=== PATIENT | male | born 1985 | race Caucasian/White ===

== ENCOUNTER 2016-12-07 15:00 | Emergency (ER) | payer MEDICAID ==
[2016-12-07] MEDS ORDERED: LORazepam 2 MG/ML INJ IVP ONE (15:31)
[2016-12-07] MEDS ORDERED: NS 1,000 ML IV ONE (15:31)
--- NOTE | 2016-12-07 15:35 | EDPHY ---
H & P Stated Complaint: Syncope vs sz Time Seen by Provider: 12/07/16 15:21 HPI/ROS: CHIEF COMPLAINT: Seizure HISTORY OF PRESENT ILLNESS: The patient is a 31-year-old man with a history of schizophrenia and alcohol abuse. He was being driven home from the [facility] outpatient appointment today by his dad when he had a seizure in the passenger seat. Dad states the seizure lasted for about 90 seconds and he wsa postictal for about 10 or 15 minutes. The patient is now back to normal. The patient is on multiple antipsychotic medications but they do not remember the names. They are not sure if he is on any benzodiazepines. They states that he has not had any recent changes in his medications. He does take Antabuse. Parents are very confident that he has not had any alcohol in the last 8 months. They state that they have been with him for the last 3 days. Patient denies any recent fevers or illness. He denies headache. He was incontinent today. No oral trauma. REVIEW OF SYSTEMS: Constitutional: denies: chills, fever, recent illness, recent injury EENTM: denies: blurred vision, double vision, nose congestion Respiratory: denies: cough, shortness of breath Cardiac: denies: chest pain, irregular heart rate, lightheadedness, palpitations Gastrointestinal/Abdominal: denies: abdominal pain, diarrhea, nausea, vomiting, blood streaked stools Genitourinary: See HPI Musculoskeletal: denies: joint pain, muscle pain Skin: denies: lesions, rash, jaundice, bruising Neurological: See HPI, denies: headache, numbness, paresthesia, tingling, dizziness, weakness Hematologic/Lymphatic: denies: blood clots, easy bleeding, easy bruising Immunologic/allergic: denies: HIV/AIDS, transplant EXAM: GENERAL: slightly confused, disheveled HEAD: Atraumatic, normocephalic. EYES: Pupils equal round and reactive to light, extraocular movements intact, sclera anicteric, conjunctiva are normal. ENT: TMs normal, nares patent, oropharynx clear without exudates. Moist mucous membranes. NECK: Normal range of motion, supple without lymphadenopathy or JVD. LUNGS: Breath sounds clear to auscultation bilaterally and equal. No wheezes rales or rhonchi. HEART: Regular rate and rhythm without murmurs, rubs or gallops. ABDOMEN: Soft, nontender, normoactive bowel sounds. No guarding, no rebound. No masses appreciated. BACK: No CVA tenderness, no spinal tenderness, step-offs or deformities EXTREMITIES: Normal range of motion, no pitting or edema. No clubbing or cyanosis. NEUROLOGICAL: Cranial nerves II through XII grossly intact. Normal speech, normal gait. 5/5 strength, normal movement in all extremities, normal sensation PSYCH: Normal mood, normal affect. SKIN: Warm, dry, normal turgor, no visible rashes or lesions. Source: Patient, Family Exam Limitations: Clinical condition - Personal History Current Tetanus Diphtheria and Acellular Pertussis (TDAP): Unsure - Medical/Surgical History Hx Asthma: No Hx Chronic Respiratory Disease: No Hx Diabetes: No Hx Cardiac Disease: No Hx Renal Disease: No Hx Cirrhosis: No Hx Alcoholism: No Hx HIV/AIDS: No Hx Splenectomy or Spleen Trauma: No Other PMH: PS. past hx substance abuse - Family History Significant Family History: No pertinent family hx - Social History Smoking Status: Current every day smoker Alcohol Use: Sober Drug Use: None Constitutional: Initial Vital Signs Temperature (C) 37.4 C 12/07/16 15:05 Heart Rate 115 H 12/07/16 15:05 Respiratory Rate 18 12/07/16 15:05 Blood Pressure 137/84 H 12/07/16 15:05 O2 Sat (%) 93 12/07/16 15:05 O2 Delivery Mode Room Air Allergies/Adverse Reactions: haloperidol [From Haldol] Allergy (Verified 12/07/16 15:08) haloperidol lactate [From Haldol] Allergy (Verified 12/07/16 15:08) Home Medications: Medication Instructions Recorded OLANZapine [Zyprexa] 20 mg PO HS #0 tablet 03/30/16 Medical Decision Making - Diagnostics EKG Interpretation: An EKG obtained and was read and documented in trace view. Please see trace view for full reading and report. Sinus rhythm, no acute ischemic changes Imaging: Discussed imaging studies w/ scallop binder Radiologist ED Course/Re-evaluation: I reviewed the patient's medication list which she took today. He does take close rules well as lithium. Both can cause seizures with high doses. He appears to be on fairly normal doses. 5:00 p.m. the patient's lab work and imaging are reassuring. The patient feels reassured. I will have him follow up with Neurology. He declines further workup or testing. His family is agreeing with this. Differential Diagnosis: Partial list of the Differential diagnosis considered include but were not limited to; seizure, syncope abnormality and although unlikely based on the history and physical exam, I also considered head injury, infection. I discussed these differential diagnoses and the plan with the patient as well as the usual and expected course. The patient understands that the diagnosis is provisional and that in medicine we are not always correct and that further workup is often warranted. Usual and customary warnings were given. All of the patient's questions were answered. The patient was instructed to return to the emergency department should the symptoms at all worsen or return, otherwise to followup with the physician as we discussed. - Data Points Laboratory Results: Laboratory Results 12/07/16 15:20 12/07/16 15:20 Medications Given: Discontinued Medications Sodium Chloride (Ns) 1,000 mls @ 0 mls/hr IV ONCE ONE; Wide Open PRN Reason: Protocol Stop: 12/07/16 15:32 Last Admin: 12/07/16 15:43 Dose: 1,000 mls Lorazepam (Ativan Injection) 1 mg IVP EDNOW ONE Stop: 12/07/16 15:32 Last Admin: 12/07/16 15:44 Dose: 1 mg Departure - Departure Disposition: Home, Routine, Self-Care Clinical Impression: Seizure Condition: Fair Instructions: New-Onset Seizure in Adults (ED) Referrals: NONE *PRIMARY CARE P,. [Primary Care Provider] - As per Instructions Hill Menchaca DO [Medical Doctor] - As per Instructions
[2016-12-07 15:41] LABS: % IMMATURE GRANULYOCYTES 0.4 % (0.0-1.1); ABSOLUTE IMMATURE GRANULOCYTES 0.05 10^3/uL (0.00-0.10); ADD DIFF? NO; ADD MORPH? NO; ADD SCAN? NO; ATYPICAL LYMPHOCYTE FLAG 10 (0-99); FRAGMENT RBC FLAG 0 (0-99); HEMATOCRIT 44.8 % (40.0-51.0); HEMOGLOBIN 14.8 g/dL (13.7-17.5); LEFT SHIFT FLG 0 (0-99); LIPEMIA HEMOLYSIS FLAG 80 (0-99); MEAN CELL HEMOGLOBIN 31.5 pg (27.9-34.1); MEAN CELL VOLUME 95.3 fL (81.5-99.8); MEAN PLATELET VOLUME 9.9 fL (8.7-11.7); PLATELET CLUMPS FLAG 0 (0-99); PLATELET COUNT 272 10^3/uL (150-400); RED CELL DISTRIBUTION WIDTH 13.9 % (11.5-15.2)
[2016-12-07 15:50] LABS: ANION GAP 13 mEq/L (8-16); CALCIUM 10.3 mg/dL (8.5-10.4); CARBON DIOXIDE 21 mEq/l (22-31); CHLORIDE 104 mEq/L (97-110); CREATININE 0.8 mg/dL (0.7-1.3); ETHANOL SERUM < 10 mg/dL (0-10); GLOMERULAR FILTRATION RATE > 60; GLUCOSE 126 mg/dL (70-100); LITHIUM 1.7 mEq/L (0.6-1.2); POTASSIUM 4.1 mEq/L (3.5-5.2); SODIUM 138 mEq/L (134-144)
--- NOTE | 2016-12-07 16:05 | CPEKG ---
Heart Rate: 89 RR Interval: 674 P-R Interval: 152 QRSD Interval: 98 QT Interval: 380 QTC Interval: 463 P [place]: 67 QRS [place]: 53 T Wave [place]: 60 EKG Severity - NORMAL ECG - EKG Impression: SINUS RHYTHM Electronically Signed By: Jose Geller 07-Dec-2016 16:24:38
[2016-12-07 17:12] VITALS: BP 109/87; PULSE 88; RESP 16; TEMP 98.1; O2SAT 96
== END 2016-12-07 17:12 | disposition home or self-care (01) ==
DX: R56.9 Unspecified convulsions (principal); E86.9 Volume depletion, unspecified; F17.200 Nicotine dependence, unspecified, uncomplicated
CPT/HCPCS: 96374; G0480; J2060

== ENCOUNTER 2017-04-05 22:45 | Emergency (ER) | payer MEDICAID ==
[2017-04-05] MEDS ORDERED: NS 1,000 ML IV ONE (22:50)
--- NOTE | 2017-04-05 22:51 | EDPHY ---
H & P HPI/ROS: HPI CHIEF COMPLAINT: Seizure at home HISTORY OF PRESENT ILLNESS: This patient very pleasant 31-year-old male, significant past medical history for schizophrenia, on court-ordered medications , takes lithium, additionally history of alcohol abuse, and remote history of a seizure. Presents emergency room after having a witnessed seizure by his mom at home. According to EMS last very short. He was postictal after the seizure. Patient did have bowel bladder incontinence. Did not bite his tongue. Does not remember what happened. Past Medical History: Schizophrenia, history of alcohol abuse, history remote seizure Past Surgical History: Denies recent surgery Social History: Denies daily use of drugs alcohol tobacco products. Family History: Noncontributory. ROS REVIEW OF SYSTEMS: A comprehensive 10 point review of systems is otherwise negative aside from elements mentioned in the history of present illness. Exam Constitutional appears well nontoxic, triage nursing summary reviewed, vital signs reviewed, awake/alert. Eyes normal conjunctivae and sclera, EOMI, PERRLA. HENT normal inspection, atraumatic, moist mucus membranes, no epistaxis, neck supple/ no meningismus, no raccoon eyes. Respiratory clear to auscultation bilaterally, normal breath sounds, no respiratory distress, no wheezing. Cardiovascular rate normal, regular rhythm, no murmur, no edema, distal pulses normal. Gastrointestinal soft, non-tender, no rebound, no guarding, normal bowel sounds, no distension, no pulsatile mass. Genitourinary no CVA tenderness. Musculoskeletal no midline vertebral tenderness, full range of motion, no calf swelling, no tenderness of extremities, no meningismus, good pulses, neurovascularly intact. Back exam I do not appreciate any significant signs of trauma. Skin pink, warm, & dry, no rash, skin atraumatic. Neurologic awake, alert and oriented x 3, AAOx3, moves all 4 extremities equally, motor intact, sensory intact, CN II-XII intact, normal cerebellar, normal vision, normal speech. Psychiatric normal mood/affect. Heme/Lymph/Immune no lymphadenopathy. Differential Diagnosis: Includes but is not limited to in a particular order, seizure, epilepsy, breakthrough seizure, electrolyte disturbance, alcohol abuse , alcohol withdrawal, infection, look lithium toxicity, drug screen Medical Decision Making: IV establishment, check basic blood work, CT head without contrast for seizure, check alcohol level drug screen, check lithium level. Re-evaluation: CT scan of the head without IV contrast. The results of the study are negative for acute abnormality The study was read by Dr. Iglesias I viewed the images myself on the PACS system. EKG interpretation by me on record in [employer] system. Impression time of EKG 0015 sinus rhythm rate of 72. There is no acute ischemic change. 1235: Patient's blood work CT and x-ray been reviewed. No acute traumatic injury of the back. CT head without contrast does not show a bleed. Blood work is reassuring. He has had no seizure activity here in emergency room. Recommend he follows up with his primary care doctor and Neurology if he continues to have any further seizure return emergency room. Source: Patient, EMS - Medical/Surgical History Hx Asthma: No Hx Chronic Respiratory Disease: No Hx Diabetes: No Hx Cardiac Disease: No Hx Renal Disease: No Hx Cirrhosis: No Hx Alcoholism: No Hx HIV/AIDS: No Hx Splenectomy or Spleen Trauma: No Other PMH: PS. past hx substance abuse - Social History Smoking Status: Current every day smoker Constitutional: Initial Vital Signs Temperature (C) 36.9 C 04/05/17 22:45 Heart Rate 103 H 04/05/17 22:45 Respiratory Rate 16 04/05/17 22:45 Blood Pressure 133/78 H 04/05/17 22:45 O2 Sat (%) 93 04/05/17 22:45 O2 Delivery Mode Room Air Allergies/Adverse Reactions: haloperidol [From Haldol] Allergy (Verified 12/07/16 15:08) haloperidol lactate [From Haldol] Allergy (Verified 12/07/16 15:08) Home Medications: Medication Instructions Recorded ANTABUSE 04/05/17 Abilify 04/05/17 Clozaril 04/05/17 Desmopressin 04/05/17 Fish Oil 1,000 mg Capsule 04/05/17 Gabapentin 04/05/17 [place] Carbonate ER 04/05/17 Omeprazole 04/05/17 Prozac 10 MG (*) 04/05/17 Vitamin D3 04/05/17 Medical Decision Making - Diagnostics Imaging Results: Imaging Impressions Head CT 04/05/17 22:50 Impression: Technically limited, negative exam. I telephoned results to Armand Nguyen, answering the phone for David Gongora, at 2345 hours. Lumbar Spine X-Ray 04/05/17 22:56 Impression: Possible early disk degeneration at L4-L5. No fracture. - Data Points Laboratory Results: Laboratory Results 04/05/17 22:50 04/05/17 22:50 04/05/17 04/05/17 04/05/17 22:50 22:50 00:15 WBC 11.40 10^3/uL H 10^3/uL (3.80-9.50) RBC 4.69 10^6/uL 10^6/uL (4.40-6.38) Hgb 15.1 g/dL g/dL (13.7-17.5) Hct 45.7 % % (40.0-51.0) MCV 97.4 fL fL (81.5-99.8) MCH 32.2 pg pg (27.9-34.1) MCHC 33.0 g/dL g/dL (32.4-36.7) RDW 14.6 % % (11.5-15.2) Plt Count 252 10^3/uL 10^3/uL (150-400) MPV 9.8 fL fL (8.7-11.7) Neut % (Auto) 56.4 % % (39.3-74.2) Lymph % (Auto) 28.1 % % (15.0-45.0) [place] % (Auto) 4.1 % L % (4.5-13.0) Eos % (Auto) 10.5 % H % (0.6-7.6) Baso % (Auto) 0.5 % % (0.3-1.7) Nucleat RBC Rel Count 0.0 % % (0.0-0.2) Absolute Neuts (auto) 6.42 10^3/uL 10^3/uL (1.70-6.50) Absolute Lymphs (auto) 3.20 10^3/uL H 10^3/uL (1.00-3.00) Absolute Monos (auto) 0.47 10^3/uL 10^3/uL (0.30-0.80) Absolute Eos (auto) 1.20 10^3/uL H 10^3/uL (0.03-0.40) Absolute Basos (auto) 0.06 10^3/uL 10^3/uL (0.02-0.10) Absolute Nucleated RBC 0.00 10^3/uL 10^3/uL (0-0.01) Immature Gran % 0.4 % % (0.0-1.1) Immature Gran # 0.05 10^3/uL 10^3/uL (0.00-0.10) Sodium 138 mEq/L mEq/L (134-144) Potassium 4.2 mEq/L mEq/L (3.5-5.2) Chloride 101 mEq/L mEq/L (97-110) Carbon Dioxide 25 mEq/l mEq/l (22-31) Anion Gap 12 mEq/L mEq/L (8-16) BUN 6 mg/dL L mg/dL (7-23) Creatinine 0.7 mg/dL mg/dL (0.7-1.3) Estimated GFR > 60 Glucose 126 mg/dL H mg/dL (70-100) Calcium 9.7 mg/dL mg/dL (8.5-10.4) Urine Color YELLOW Urine Appearance CLEAR Urine pH 7.0 (5.0-7.5) Ur Specific [place] 1.017 (1.002-1.030) Urine Protein NEGATIVE (NEGATIVE) Urine Ketones NEGATIVE (NEGATIVE) Urine Blood NEGATIVE (NEGATIVE) Urine Nitrate NEGATIVE (NEGATIVE) Urine Bilirubin NEGATIVE (NEGATIVE) Urine Urobilinogen NEGATIVE EU EU (0.2-1.0) Ur Leukocyte Esterase NEGATIVE (NEGATIVE) Urine Glucose NEGATIVE (NEGATIVE) Urine Opiates Screen NEGATIVE (NEGATIVE) Urine Barbiturates NEGATIVE (NEGATIVE) Ur Phencyclidine Scrn NEGATIVE (NEGATIVE) Ur Amphetamine Screen NEGATIVE (NEGATIVE) U Benzodiazepines Scrn NEGATIVE (NEGATIVE) [place] 1.4 mEq/L H mEq/L (0.6-1.2) Urine Cocaine Screen NEGATIVE (NEGATIVE) U Marijuana (THC) Screen NEGATIVE (NEGATIVE) Ethyl Alcohol < 10 mg/dL mg/dL (0-10) Medications Given: Discontinued Medications Sodium Chloride (Ns) 1,000 mls @ 0 mls/hr IV EDNOW ONE; Wide Open PRN Reason: Protocol Stop: 04/05/17 22:51 Last Admin: 04/05/17 23:00 Dose: 1,000 mls Departure - Departure Disposition: Home, Routine, Self-Care Clinical Impression: Seizure Condition: Good Instructions: Epilepsy (ED) Additional Instructions: 1. Return emergency room if he develops any worsening symptoms questions or concerns. 2. If you have another seizure return emergency room. Referrals: Patient,NotPresent [Unknown] - As per Instructions Hill Menchaca DO [Medical Doctor] - As per Instructions
[2017-04-05 23:00] LABS: % IMMATURE GRANULYOCYTES 0.4 % (0.0-1.1); ABSOLUTE IMMATURE GRANULOCYTES 0.05 10^3/uL (0.00-0.10); ADD DIFF? NO; ADD MORPH? NO; ADD SCAN? NO; ATYPICAL LYMPHOCYTE FLAG 0 (0-99); FRAGMENT RBC FLAG 0 (0-99); HEMATOCRIT 45.7 % (40.0-51.0); HEMOGLOBIN 15.1 g/dL (13.7-17.5); LEFT SHIFT FLG 0 (0-99); LIPEMIA HEMOLYSIS FLAG 80 (0-99); MEAN CELL HEMOGLOBIN 32.2 pg (27.9-34.1); MEAN CELL VOLUME 97.4 fL (81.5-99.8); MEAN PLATELET VOLUME 9.8 fL (8.7-11.7); PLATELET CLUMPS FLAG 0 (0-99); PLATELET COUNT 252 10^3/uL (150-400); RED BLOOD CELL COUNT 4.69 10^6/uL (4.40-6.38); RED CELL DISTRIBUTION WIDTH 14.6 % (11.5-15.2)
[2017-04-05 23:12] LABS: ANION GAP 12 mEq/L (8-16); CALCIUM 9.7 mg/dL (8.5-10.4); CARBON DIOXIDE 25 mEq/l (22-31); CHLORIDE 101 mEq/L (97-110); CREATININE 0.7 mg/dL (0.7-1.3); ETHANOL SERUM < 10 mg/dL (0-10); GLOMERULAR FILTRATION RATE > 60; GLUCOSE 126 mg/dL (70-100); LITHIUM 1.4 mEq/L (0.6-1.2); POTASSIUM 4.2 mEq/L (3.5-5.2); SODIUM 138 mEq/L (134-144)
--- NOTE | 2017-04-06 00:17 | CPEKG ---
Heart Rate: 72 RR Interval: 833 P-R Interval: 152 QRSD Interval: 96 QT Interval: 404 QTC Interval: 443 P [place]: 52 QRS [place]: 46 T Wave [place]: 53 EKG Severity - NORMAL ECG - EKG Impression: SINUS RHYTHM Electronically Signed By: David Lepe 06-Apr-2017 06:58:08
[2017-04-06 00:26] LABS: COLOR YELLOW; LEUKOCYTE ESTERASE,URINE NEGATIVE (NEGATIVE); NITRITE,URINE NEGATIVE (NEGATIVE)
[2017-04-06 00:51] VITALS: BP 137/87; PULSE 87; RESP 18; TEMP 97.2; O2SAT 100
== END 2017-04-06 00:54 | disposition home or self-care (01) ==
LOC: EDUNIT#
DX: G40.909 Epilepsy, unspecified, not intractable, without status epilepticus (principal); F17.200 Nicotine dependence, unspecified, uncomplicated; E86.9 Volume depletion, unspecified
CPT/HCPCS: 80305; G0480

== ENCOUNTER 2017-05-22 21:27 | Emergency (ER) | payer MEDICAID ==
--- NOTE | 2017-05-22 21:32 | EDPHY ---
H & P Time Seen by Provider: 05/22/17 21:30 HPI/ROS: HPI: This is a 31-year-old male presents with Chief Complaint: Seizure Location: body Quality:seizure Duration: 15 sec Signs and Symptoms: No fever, no chills, no nausea, no vomiting, no chest pain , no shortness of breath, no incontinence, + biting tongue Timing: Sudden Severity: Moderate Context: Patient has a history of paranoid schizophrenia, epilepsy, lives with his mother and receives court order medications including Clozaril, [place], Antabuse, Abilify and Gabapentin presents via EMS as mother witnessed him having a grand mal tonic-clonic seizure in the kitchen. Patient does not remember the events is postictal upon arrival. EMS noted fingerstick in the 140 and telemetry showing sinus tachycardia at a heart rate of 110. Patient complains of right lateral neck pain; nonradiating in nature. Patient has had 2 other seizures last year with negative head CT scan, EKG. Reports compliance on medications. EMS noted a mild tongue laceration on the left lateral side as well as a contusion or laceration on the occipital scalp area. + incontinence Denies any with fever/chills/chest pain/SOB/cough. Approximately 45 min later mother at bedside and relates that patient had a witnessed seizure and hit his head on the tile floor. She confirms that this is his 3rd seizure. They never followed with Neurology as recommended in the past. Only follows with psychiatry. Reports that patient seemed at his baseline today and is slowly returning to his baseline while waiting in the emergency room. Modifying Factors: Comment: ROS: see HPI Constitutional: No fever, no chills, no weight loss Eyes: No blurred vision Respiratory: No shortness of breath, no cough Cardiovascular: No chest pain Gastrointestinal: No nausea, no vomiting, no diarrhea Genitourinary: No dysuria Extremities: No myalgias Neurologic: No weakness, no numbness Skin: No rashes Hematologic: No bruising, no bleeding MEDICAL/SURGICAL/SOCIAL HISTORY: Medical history: Paranoid schizophrenic, epilepsy Surgical history: Denies Social history: Lives with his mother. Unemployed. CONSTITUTIONAL: Post ictal, mildly confused adult white male, untidy appearance , awake and alert, no obvious distress HEENT: 2 cm contusion occipital scalp; no fracture; normocephalic, PERRL, EOMI. Tympanic membranes clear. Oropharynx clear, tongue shows superficial laceration and no active bleeding on left lateral aspect. no exudate and moist pink mucosa. Airway patent. No lymphadenopathy. NECK: supple, no midline tenderness, flexion 45 degrees, extension 45 degrees, right and left lateral flexion 45 degrees. No meningismus. Cardiovascular: Normal S1/S2, regular rate, regular rhythm, without murmur rub or gallop. PULMONARY/CHEST: Symmetrical and nontender. Clear to auscultation bilaterally. Good air movement. No accessory muscle usage. ABDOMEN: Soft, nondistended, nontender, no rebound, no guarding, no peritoneal signs, no masses or organomegaly. No CVAT. EXTREMITIES: 2/2 pulses, strength 5/5, no deformities, no clubbing, no cyanosis or edema. NEUROLOGICAL: no focal neuro deficits. GCS 15. Cranial nerves 2-12 grossly intact. SKIN: Warm and dry, no erythema. no rash. Good capillary refill. Source: Patient, Family (Mother), RN/MD, EMS, Old records Exam Limitations: Clinical condition - Medical/Surgical History Hx Asthma: No Hx Chronic Respiratory Disease: No Hx Diabetes: No Hx Cardiac Disease: No Hx Renal Disease: No Hx Cirrhosis: No Hx Alcoholism: No Hx HIV/AIDS: No Hx Splenectomy or Spleen Trauma: No Other PMH: PS. past hx substance abuse - Social History Smoking Status: Current every day smoker Constitutional: Initial Vital Signs Temperature (C) 37.0 C 05/22/17 21:30 Heart Rate 103 H 05/22/17 21:30 Respiratory Rate 16 05/22/17 21:30 Blood Pressure 141/98 H 05/22/17 21:30 O2 Sat (%) 95 05/22/17 21:30 O2 Delivery Mode Room Air Allergies/Adverse Reactions: haloperidol [From Haldol] Allergy (Verified 05/22/17 21:40) haloperidol lactate [From Haldol] Allergy (Verified 05/22/17 21:40) Home Medications: Medication Instructions Recorded ANTABUSE 04/05/17 Abilify 04/05/17 Desmopressin 04/05/17 Fish Oil 1,000 mg Capsule 04/05/17 Gabapentin 04/05/17 [place] Carbonate ER 04/05/17 Omeprazole 04/05/17 Prozac 10 MG (*) 11/20/17 Vitamin D3 04/05/17 Clozapine 05/22/17 Disulfiram [ANTABUSE] 05/22/17 Wellbutrin Xl 05/22/17 Medical Decision Making - Diagnostics EKG Interpretation: 12 lead EKG: Indication: Seizure Rhythm: Sinus tachycardia, rate 100 beats per minute Drift: Normal Intervals: Normal QRS: Normal ST segments: Normal INTERPRETATION: No acute ischemic changes The 12 lead EKG was interpreted by myself and with attending. Imaging Results: Imaging Impressions Head CT 05/22/17 21:33 Impression: Normal. Results called and discussed with Michelle Conde PA-C, at 05/22/2017 22:18. Cervical Spine X-Ray 05/22/17 21:35 Impression: Unremarkable cervical spine x-ray. No evidence for fracture. Procedures: Procedure: Laceration repair. Verbal consent was obtained from the patient. The 2 cm, linear, superficial, simple laceration occipital scalp was NOT anesthetized. The wound was irrigated , draped and explored to its base with a gloved finger. There were no deep structures involved. No tendon injury was identified. The wound was repaired with #2 napoleon. Good hemostasis was achieved and patient tolerated procedure well. Bacitracin applied. No complications were noted. ED Course/Re-evaluation: EKG, head CT scan, labs, UDS, IV, IV fluids medications ordered Head CT imaging done due to LOC/postictal 1 L normal saline and IV Ativan 1 mg despite interaction with Clozaril as benefit outweighs risk. Recurrence of known epileptic seizure 2220: Called by radiologist and head CT scan shows no acute intracranial process. Contusion was cleaned and copiously irrigated. Labs reviewed and grossly unremarkable; lithium within normal limits; urine drug screen negative. Mother and patient have never followed up with Neurology; they are to follow up with Dr. Menchaca EKG shows no arrhythmias/acute ischemia Tongue laceration does not require repair with sutures. Patient monitored for over 2 hr in the emergency room room without any seizure activity. Seizure activity not intractable; no status epilepticus. Will defer to Neurology for any additional anti seizure medications due to polypharmacy psychiatric medications. Mother feels comfortable taking patient home at this time. Patient seems to be stable as far as his schizophrenia. No signs of delirium/ psychosis/suicidal ideation/homicidal ideation This patient was seen under the supervision of my secondary supervising physician. I evaluated care for this patient independently. Discussed this patient with Dr. Lepe who did not see the patient. Patient's presentation, labs/imaging, treatment and plan of care were discussed with secondary supervising physician. Differential Diagnosis: Seizure including but not limited to electrolyte abnormality, alcohol withdrawal , medication noncompliance, head injury, and breakthrough seizure. - Data Points Laboratory Results: Laboratory Results 05/22/17 21:30 05/22/17 21:30 05/22/17 05/22/17 05/22/17 22:50 21:30 21:30 WBC RBC Hgb Hct MCV MCH MCHC RDW Plt Count MPV Neut % (Auto) Lymph % (Auto) [place] % (Auto) Eos % (Auto) Baso % (Auto) Nucleat RBC Rel Count Absolute Neuts (auto) Absolute Lymphs (auto) Absolute Monos (auto) Absolute Eos (auto) Absolute Basos (auto) Absolute Nucleated RBC Immature Gran % Immature Gran # PT 13.7 SEC SEC (12.0-15.0) INR 1.03 (0.83-1.16) Sodium 143 mEq/L mEq/L (134-144) Potassium 4.3 mEq/L mEq/L (3.5-5.2) Chloride 104 mEq/L mEq/L (97-110) Carbon Dioxide 15 mEq/l L mEq/l (22-31) Anion Gap 24 mEq/L H mEq/L (8-16) BUN 6 mg/dL L mg/dL (7-23) Creatinine 0.8 mg/dL mg/dL (0.7-1.3) Estimated GFR > 60 Glucose 102 mg/dL H mg/dL (70-100) Calcium 10.2 mg/dL mg/dL (8.5-10.4) Troponin I < 0.012 ng/mL ng/mL (0.000-0.034) Urine Opiates Screen NEGATIVE (NEGATIVE) Urine Barbiturates NEGATIVE (NEGATIVE) Ur Phencyclidine Scrn NEGATIVE (NEGATIVE) Ur Amphetamine Screen NEGATIVE (NEGATIVE) U Benzodiazepines Scrn NEGATIVE (NEGATIVE) [place] 0.8 mEq/L mEq/L (0.6-1.2) Urine Cocaine Screen NEGATIVE (NEGATIVE) U Marijuana (THC) Screen NEGATIVE (NEGATIVE) 05/22/17 21:30 WBC 14.81 10^3/uL H 10^3/uL (3.80-9.50) RBC 4.75 10^6/uL 10^6/uL (4.40-6.38) Hgb 15.0 g/dL g/dL (13.7-17.5) Hct 47.2 % % (40.0-51.0) MCV 99.4 fL fL (81.5-99.8) MCH 31.6 pg pg (27.9-34.1) MCHC 31.8 g/dL L g/dL (32.4-36.7) RDW 13.7 % % (11.5-15.2) Plt Count 313 10^3/uL 10^3/uL (150-400) MPV 9.2 fL fL (8.7-11.7) Neut % (Auto) 58.5 % % (39.3-74.2) Lymph % (Auto) 28.1 % % (15.0-45.0) [place] % (Auto) 5.5 % % (4.5-13.0) Eos % (Auto) 6.8 % % (0.6-7.6) Baso % (Auto) 0.7 % % (0.3-1.7) Nucleat RBC Rel Count 0.0 % % (0.0-0.2) Absolute Neuts (auto) 8.67 10^3/uL H 10^3/uL (1.70-6.50) Absolute Lymphs (auto) 4.16 10^3/uL H 10^3/uL (1.00-3.00) Absolute Monos (auto) 0.82 10^3/uL H 10^3/uL (0.30-0.80) Absolute Eos (auto) 1.00 10^3/uL H 10^3/uL (0.03-0.40) Absolute Basos (auto) 0.10 10^3/uL 10^3/uL (0.02-0.10) Absolute Nucleated RBC 0.00 10^3/uL 10^3/uL (0-0.01) Immature Gran % 0.4 % % (0.0-1.1) Immature Gran # 0.06 10^3/uL 10^3/uL (0.00-0.10) PT INR Sodium Potassium Chloride Carbon Dioxide Anion Gap BUN Creatinine Estimated GFR Glucose Calcium Troponin I Urine Opiates Screen Urine Barbiturates Ur Phencyclidine Scrn Ur Amphetamine Screen U Benzodiazepines Scrn [place] Urine Cocaine Screen U Marijuana (THC) Screen Medications Given: Discontinued Medications Diphtheria/Tetanus/Acell Pertussis (Boostrix) 0.5 ml IM .ONCE ONE Stop: 05/22/17 21:40 Last Admin: 05/22/17 22:21 Dose: 0.5 ml Sodium Chloride (Ns) 1,000 mls @ 0 mls/hr IV ONCE ONE; Wide Open PRN Reason: Protocol Stop: 05/22/17 21:34 Last Admin: 05/22/17 21:51 Dose: 1,000 mls Lorazepam (Ativan Injection) 1 mg IVP EDNOW ONE Stop: 05/22/17 21:35 Last Admin: 05/22/17 21:50 Dose: 1 mg Departure - Departure Disposition: Home, Routine, Self-Care Clinical Impression: Polypharmacy, Paranoid schizophrenia Laceration of scalp without complication Qualifiers: Encounter type: initial encounter Qualified Code(s): S01.01XA - Laceration without foreign body of scalp, initial encounter Epilepsy Qualifiers: Epilepsy type: other Intractability: not intractable Status epilepticus: without status epilepticus Qualified Code(s): G40.802 - Other epilepsy, not intractable, without status epilepticus Condition: Good Instructions: Staple Care (ED), Facial Laceration (ED) Additional Instructions: Please do not wash your hair or get napoleon wet for 48 hr. After 48 hr you may get the napoleon wet; pat dry and apply topical antibiotic ointment daily. Please follow-up with Neurology to establish care for seizure activity in the next 1-2 weeks. Please return to the emergency room in 5-7 days to have your napoleon removed. Referrals: Hill Menchaca, DO [Medical Doctor] - As per Instructions
[2017-05-22] MEDS ORDERED: NS 1,000 ML IV ONE (21:33)
[2017-05-22] MEDS ORDERED: LORazepam 2 MG/ML INJ IVP ONE (21:34)
[2017-05-22] MEDS ORDERED: TDAP ADULT 0.5 ML INJ (BOOSTRIX) IM ONE (21:39)
[2017-05-22 21:40] VITALS: RESP 16; TEMP 98.6
[2017-05-22 21:41] LABS: PLATELET COUNT 313 10^3/uL (150-400)
--- NOTE | 2017-05-22 21:51 | CPEKG ---
Heart Rate: 100 RR Interval: 600 P-R Interval: 96 QRSD Interval: 98 QT Interval: 352 QTC Interval: 454 P [place]: 44 QRS [place]: 22 T Wave [place]: 2 EKG Severity - OTHERWISE NORMAL ECG - EKG Impression: SINUS TACHYCARDIA Electronically Signed By: Rahul Irving 24-May-2017 20:20:54
[2017-05-22 22:09] LABS: INR 1.03 (0.83-1.16); PROTIME(PATIENT) 13.7 SEC (12.0-15.0)
[2017-05-22 23:29] VITALS: BP 126/84; PULSE 77; O2SAT 98
== END 2017-05-22 23:29 | disposition home or self-care (01) ==
LOC: EDUNIT#
PROC: 3E0337Z Introduction of Electrolytic and Water Balance Substance into Peripheral Vein, Percutaneous Approach (ICD-10-PCS; principal; 2017-05-22)
PROC: 0HQ0XZZ Repair Scalp Skin, External Approach (ICD-10-PCS; principal; 2017-05-22)
DX: S01.01XA Laceration without foreign body of scalp, initial encounter (principal); T43.591A Poisoning by other antipsychotics and neuroleptics, accidental (unintentional), initial encounter; F20.0 Paranoid schizophrenia; G40.802 Other epilepsy, not intractable, without status epilepticus; F17.200 Nicotine dependence, unspecified, uncomplicated; E86.9 Volume depletion, unspecified; W22.8XXA Striking against or struck by other objects, initial encounter
CPT/HCPCS: 80305; 96374; J2060

== ENCOUNTER → 2017-06-14 | Outpatient (CLI) | payer MEDICAID ==
[~2017-06-14] MED LIST: GADOBUTROL 10 ML VIAL IVP ONE
== END ==
LOC: FIMAGING 15:21
PROVIDERS: ATTEND Psychiatry & Neurology Neurology
DX: R56.9 Unspecified convulsions (principal)
CPT/HCPCS: A9585

== ENCOUNTER → 2017-06-23 | Outpatient (CLI) | payer MEDICAID ==
--- NOTE | 2017-06-29 15:39 | CPEEG ---
[f rep st] ELECTROENCEPHALOGRAM DATE OF STUDY: 06/23/2017 INTERPRETATION: Normal EEG during wakefulness and drowsiness. There were no potentially epileptogen ic abnormalities present during recording. REPORT: This EEG contains 9-10 Hz alpha activity to the posterior head regions. There was no abnorm al activation at rest, during photic stimulation or hyperventilation. The patient briefly became jesse wsy during the study. There was no abnormal activation during brief drowsiness or during times of ar ousal. /[id number]/MODL
== END ==
LOC: FCPNEURO 10:04
PROVIDERS: ATTEND Psychiatry & Neurology Neurology
DX: R56.9 Unspecified convulsions (principal)